=== PATIENT | female | born 1930 | race Caucasian/White ===

== ENCOUNTER → 2018-01-08 | Outpatient (CLI) | payer MEDICARE ==
--- NOTE | 2018-01-08 16:52 | CARDNUC ---
[place] [address] CARDIAC NUCLEAR IMAGING REPORT Name: DIEGOJOSE LUIS Room: [facility]#: [id number] Admission: 01/08/18 Attend Phys: Austin Cesar, Discharge: Date of : [birth year] Date of Service: 01/08/18 1652 Report #: [id number] THIS REPORT FOR: //name// APPROVED REPORT Study performed: 01/08/2018 07:15:00 Exam: Nuclear Stress Test Indication: CAD s/p PCI Patient Location: Out-Patient Stress Tech: Mimi Goldstein Stress Nurse: Shobha Coats RN NM Tech:FROYLAN Spicer Ht: 5 ft 5 in Wt: 147 lbs BSA: 1.74 m2 BMI: 24.45 Medical History Medical History: CAD s/p stent Medications: lisinopril, metoprolol, asa, crestor Allergies: estrogens Cardiac Risk Factors: Age, DM, HTN, Hyperlipidemia Previous Cardiac Procedures: PCI Exercise History: Physically active Meds Held (24 hrs): Metoprolol Stress Test Details Stress Test: Pharmacologic stress testing performed using 0.4 mg of regadenoson per 5 mL given IV over 10 seconds. Reason for pharmacologic stress test: physical limitation. HR Resting HR: 75 bpm Max Heart Rate (APMHR): 133 bpm Max HR Achieved: 115 bpm Target HR (85% APMHR): 113 bpm % of APMHR: 86 Recovery HR: 98 bpm HR response to stress: Normal HR response to stress BP Resting BP: 214/92 mmHg Max BP: 207/81 mmHg BP response to stress: Normal blood pressure response [place] [address] CARDIAC NUCLEAR IMAGING REPORT Name: DIEGO,JOSE LUIS Bartlett Room: [facility]#: [id number] Admission: 01/08/18 Attend Phys: Austin Cesar, Discharge: Date of : [birth year] Date of Service: 01/08/18 1652 Report #: [id number] Resting ECG: Sinus Rhythm Stress ECG: Sinus Rhythm ST Change: None Arrhythmia: None Recovery ECG: Sinus Rhythm Recovery ST Change: None Clinical Reason for Termination: Completed protocol Stress Symptoms: None Exercise duration: 4 min 0 sec Exercise capacity: 1.83 METs Stress ECG Conclusion negative ECG portion NM EXAM: Myocardial Perfusion REST/STRESS Imaging Protocol: Rest Tc-99m/Stress Tc-99m 1 day Resting Data Rest SPECT myocardial perfusion imaging was performed in supine position 30 minutes following the intravenous injection of 10.4 mCi of Tc-99m Sestamibi. Time of rest injection: 08 Time of rest imagin The images were gated to evaluate regional wall motion and calculate left ventricular ejection fraction. Administration Route: IV Pharmacologic Stress Pharmacologic stress test was performed by injecting Regadenoson 0.4 mg IV push followed by the intravenous injection of 34.6 mCi of Tc-99m Sestamibi. Time of stress injection: 0945 Time of stress imagin Administration Route: IV Gated Stress SPECT was performed 40 minutes after stress injection. The images were gated to evaluate regional wall motion and calculate left ventricular ejection fraction. Prone imaging was performed. Study Quality Study: Fair Artifact: No artifact No artifact Lung Uptake: [place] [address] CARDIAC NUCLEAR IMAGING REPORT Name: JOSE LUIS CORTEZ Room: [facility]#: [id number] Admission: 01/08/18 Attend Phys: Austin Cesar, Discharge: Date of : [birth year] Date of Service: 01/08/18 1652 Report #: [id number] Study Data At rest, the left ventricular ejection fraction was >65%.. Post stress, the left ventricular ejection was >65%.. Perfusion There is a small inferior defect, noted on rest only, the stress study is normal. The planar data shows extra cardiac uptake is present on rest data. No reversible defect is seen. Wall Motion normal Nuclear Conclusion ECG Findings: negative for ischemia Clinical Findings: negative for ischemia Nuclear Findings: negative for ischemia Exercise Capacity: not assessed Left Ventricular Function: normal Risk Study: low Normal perfusion study.No reversible defects. <Conclusion> negative ECG portion <ELECTRONICALLY SIGNED> By: Austin Cesar MD, FACC 01/08/181651 51 51 Austin Cesar MD, FACC /INF
== END ==
LOC: M.NUC 10-21 08:00 → M.ULTRA 10-21 08:00 → M.CRD 10-21 08:00 → M.ULTRA 10-21 08:30 → M.NUC 10-21 09:00 → M.ULTRA 07:14 → M.NUC 08:00
DX: I25.10 Atherosclerotic heart disease of native coronary artery without angina pectoris (principal); G45.9 Transient cerebral ischemic attack, unspecified

== ENCOUNTER → 2018-07-21 | Outpatient (CLI) | payer MEDICARE | LOC: M.ULTRA 09:30 | DX: I65.23 Occlusion and stenosis of bilateral carotid arteries (principal); I25.10 Atherosclerotic heart disease of native coronary artery without angina pectoris ==

== ENCOUNTER → 2018-09-10 | Outpatient (CLI) | payer MEDICARE | LOC: M.ULTRA 10:57 | DX: M47.816 Spondylosis without myelopathy or radiculopathy, lumbar region (principal); M79.89 Other specified soft tissue disorders; M79.662 Pain in left lower leg; M25.551 Pain in right hip; M51.37 Other intervertebral disc degeneration, lumbosacral region; M48.07 Spinal stenosis, lumbosacral region ==

== ENCOUNTER → 2020-04-04 | Outpatient (CLI) | payer MEDICARE ==
[2020-04-04 10:54] LABS: CALCIUM 9.4 mg/dL (8.5-10.1); CREATININE 0.8 mg/dL (0.6-1.3); POTASSIUM 4.3 mmol/L (3.5-5.1)
== END ==
LOC: M.LAB 10:00 → M.CT 11:00
PROVIDERS: ATTEND Registered Nurse
DX: I65.23 Occlusion and stenosis of bilateral carotid arteries (principal); I65.02 Occlusion and stenosis of left vertebral artery; I70.0 Atherosclerosis of aorta; R91.1 Solitary pulmonary nodule; M50.321 Other cervical disc degeneration at C4-C5 level